=== PATIENT | female | born 1970 | race Caucasian/White ===

== ENCOUNTER 2017-11-22 09:24 | Observation (INO) | payer BC, OTHER ==
[~2017-11-22] VITALS: Ht 154.9 cm; Wt 86.0 kg
[2017-11-22 10:17] LABS: AMPHETAMINE SCREEN, URINE Negative (Negative); BARBITURATE SCREEN, URINE Negative (Negative); BENZODIAZEPINE SCREEN, URINE Negative (Negative); CANNABINOID SCREEN, URINE Negative (Negative); COCAINE SCREEN, URINE Negative (Negative); METHADONE SCREEN, URINE Negative (Negative); OPIATE SCREEN, URINE Negative (Negative)
[2017-11-22 10:20] LABS: BASOPHILS # (AUTO) 0.03 x10^3/uL (0-0.1); BASOPHILS % (AUTO) 0 % (0-1); EOSINOPHILS # (AUTO) 0.04 x10^3/uL (0-0.4); EOSINOPHILS % (AUTO) 1 % (1-7); LYMPHOCYTES # (AUTO) 1.09 x10^3/uL (1-3.4); LYMPHOCYTES % (AUTO) 18 % (22-44); MD NO; MEAN CORPUSCULAR HEMOGLOBIN 32.1 pg (27.0-34.8); MEAN CORPUSCULAR HGB CONC 34.4 g/dL (32.4-35.8); MEAN CORPUSCULAR VOLUME 93.4 fL (80-100); MEAN PLATELET VOLUME 7.2 fL (7.4-10.4); MONOCYTES % (AUTO) 8 % (2-9); NEUTROPHILS # (AUTO) 4.26 x10^3/uL (1.8-6.8); NEUTROPHILS % (AUTO) 72 % (42-75); PLATELET COUNT 240 x10^3/uL (130-400); RED BLOOD COUNT 4.68 x10^6/uL (3.82-5.3); RED CELL DISTRIBUTION WIDTH 12.6 % (9.6-15.2)
[2017-11-22 10:32] LABS: ALBUMIN 3.6 g/dL (3.4-5.0); ANION GAP 7 mmol/L (5-15); CHLORIDE 108 mmol/L (98-107)
[2017-11-22 10:37] LABS: ACETAMINOPHEN < 2 mcg/mL (10-30); ALANINE AMINOTRANSFERASE 21 U/L (12-78); ALKALINE PHOSPHATASE 79 U/L (45-117); BILIRUBIN,TOTAL 0.5 mg/dL (0.2-1.0); CREATININE 0.91 mg/dL (0.55-1.02); SALICYLATE LEVEL < 1.7 mg/dL (2.8-20.0); TOTAL PROTEIN 7.4 g/dL (6.4-8.2)
[2017-11-22] MEDS ORDERED: IBUPROFEN 200 MG TABLET ONE (10:49)
[2017-11-22] MEDS ORDERED: LORazepam 1MG TABLET ONE (10:50)
[2017-11-22] MEDS ORDERED: TRAZ-137 PO (11:00)
[2017-11-22] MEDS ORDERED: IBUPROFEN 200 MG TABLET PO ONE (11:00)
[2017-11-22] MEDS ORDERED: ACYC-114 PO (11:00)
[2017-11-22] MEDS ORDERED: LORazepam 1MG TABLET PO ONE (11:00)
[2017-11-22] MEDS ORDERED: DULO60CA7 PO (11:00)
[2017-11-22] MEDS ORDERED: ACETAMINOPHEN 325 MG TABLET PO PRN (13:30)
[2017-11-22] MEDS ORDERED: MIRTAZAPINE 15 MG TABLET PO SCH (21:00)
[2017-11-22] MEDS ORDERED: TRAZODONE 100MG TABLET PO SCH (21:00)
[2017-11-23 04:35] LABS: BASOPHILS # (AUTO) 0.03 x10^3/uL (0-0.1); BASOPHILS % (AUTO) 1 % (0-1); EOSINOPHILS # (AUTO) 0.07 x10^3/uL (0-0.4); EOSINOPHILS % (AUTO) 1 % (1-7); LYMPHOCYTES # (AUTO) 1.54 x10^3/uL (1-3.4); LYMPHOCYTES % (AUTO) 29 % (22-44); MD NO; MEAN CORPUSCULAR HEMOGLOBIN 31.5 pg (27.0-34.8); MEAN CORPUSCULAR HGB CONC 33.9 g/dL (32.4-35.8); MEAN PLATELET VOLUME 7.2 fL (7.4-10.4); MONOCYTES # (AUTO) 0.49 x10^3/uL (0.2-0.8); MONOCYTES % (AUTO) 9 % (2-9); NEUTROPHILS # (AUTO) 3.19 x10^3/uL (1.8-6.8); NEUTROPHILS % (AUTO) 60 % (42-75); PLATELET COUNT 231 x10^3/uL (130-400); RED BLOOD COUNT 4.57 x10^6/uL (3.82-5.3); RED CELL DISTRIBUTION WIDTH 12.7 % (9.6-15.2)
[2017-11-23 04:44] LABS: ALBUMIN 3.2 g/dL (3.4-5.0); ANION GAP 5 mmol/L (5-15); CALCIUM 8.6 mg/dL (8.5-10.1); CHLORIDE 110 mmol/L (98-107)
[2017-11-23 04:56] LABS: ALANINE AMINOTRANSFERASE 18 U/L (12-78); ALKALINE PHOSPHATASE 72 U/L (45-117); BILIRUBIN,TOTAL 0.5 mg/dL (0.2-1.0); CREATININE 0.85 mg/dL (0.55-1.02); TOTAL PROTEIN 6.8 g/dL (6.4-8.2)
[2017-11-23] MEDS ORDERED: ACETAMINOPHEN 325 MG TABLET ONE (07:14)
[2017-11-23 08:14] VITALS: BP 105/70
[2017-11-23 08:41] LABS: MICROSCOPIC NOT IND
[2017-11-23] MEDS ORDERED: ACYCLOVIR 400 MG TABLET PO SCH (09:00)
[2017-11-23] MEDS ORDERED: DULOXETINE 30 MG CAPSULE.DR PO SCH (09:00)
[2017-11-23] MEDS ORDERED: IBUPROFEN 200 MG TABLET ONE (12:13)
[2017-11-23] MEDS ORDERED: IBUPROFEN 600 MG TABLET PO SCH (12:30)
[2017-11-23] MEDS ORDERED: IBUPROFEN 600 MG TABLET PO ONE (12:30)
[2017-11-23] MEDS ORDERED: ALPR0.254 PO (17:17)
[2017-11-23] MEDS ORDERED: DULO30CA2 PO (17:17)
[2017-11-23] MEDS ORDERED: MIRT15TA4 PO (17:17)
== END 2017-11-23 21:08 | disposition home or self-care (01) ==
LOC: ED 10:51 → EDIP 13:08
PROVIDERS: ADMIT Internal Medicine; ATTEND Internal Medicine
DX: R45.851 Suicidal ideations (principal); J45.909 Unspecified asthma, uncomplicated; E66.9 Obesity, unspecified; F32.9 Major depressive disorder, single episode, unspecified; F41.1 Generalized anxiety disorder; F43.10 Post-traumatic stress disorder, unspecified; Z91.5 Personal history of self-harm; Z90.710 Acquired absence of both cervix and uterus; Z91.14 Patient's other noncompliance with medication regimen
CPT/HCPCS: 36415; 80053; 80307; 80329; 81003; 84443; 84703; 85025; G0378; G0480